=== PATIENT | female | born 1950 | race Caucasian/White ===

== ENCOUNTER 2021-06-13 08:16 | Day surgery (SDC) | payer OTHER ==
[~2021-06-13 08:16] MED LIST: SODIUM CHLORIDE 0.9% 1,000 ML IV ONE; SODIUM CHLORIDE 0.9% 1,000 ML ONE
[2021-06-13] MEDS ORDERED: SODIUM CHLORIDE 0.9% 1,000 ML IV ONE (08:30)
[2021-06-13] MEDS ORDERED: DIAZEPAM 5 MG TABLET ONE (09:46)
[2021-06-13] MEDS ORDERED: ASPIRIN 81 MG CHEWABLE TABLET ONE ×2 (09:46→12:25)
[2021-06-13] MEDS ORDERED: DiphenhydrAMINE HCL 50 MG CAPSULE ONE (09:47)
[2021-06-13] MEDS ORDERED: HEPARIN SODIUM 1000 UNITS/NS 1,000 ML ONE (10:02)
[2021-06-13] MEDS ORDERED: SODIUM BICARBONATE 50 MEQ/50 ML VIAL ONE (10:02)
[2021-06-13] MEDS ORDERED: LIDOCAINE/PF 1% 30 ML VIAL ONE (10:02)
[2021-06-13] MEDS ORDERED: IOHEXOL 300 MG/ML 150 ML VIAL ONE (10:03)
[2021-06-13 10:05] LABS: PROTHROMBIN TIME 10.3 SEC (9.4-11.6)
[2021-06-13 10:26] LABS: GLUCOMETER DEV NAME(LOC) SDS.; GLUCOSE,POINT OF CARE 246 MG/DL (70-110)
[2021-06-13] MEDS ORDERED: DiphenhydrAMINE HCL 50 MG CAPSULE PO ONE (10:30)
[2021-06-13] MEDS ORDERED: ASPIRIN 81 MG CHEWABLE TABLET PO ONE ×2 (10:30→13:00)
[2021-06-13] MEDS ORDERED: DIAZEPAM 5 MG TABLET PO ONE (10:30)
[2021-06-13 10:31] VITALS: BP 191/82
[2021-06-13] MEDS ORDERED: FentaNYL CITRATE PF 100 MCG/2 ML VIAL ONE (10:44)
[2021-06-13] MEDS ORDERED: MIDAZOLAM HCL 2 MG/2 ML VIAL ONE (10:44)
[2021-06-13] MEDS ORDERED: METOPROLOL TARTRATE 5 MG/5 ML VIAL ONE (10:54)
[2021-06-13] MEDS ORDERED: METOPROLOL TARTRATE 5 MG/5 ML VIAL IVP ONE (11:00)
[2021-06-13] MEDS ORDERED: HEPARIN SODIUM 1000 UNITS/NS 1,000 ML IARTER ONE (11:00)
[2021-06-13] MEDS ORDERED: IOHEXOL 300 MG/ML 150 ML VIAL IARTER ONE (11:00)
[2021-06-13] MEDS ORDERED: HEPARIN SODIUM,PORCINE 5,000 UNITS/ML VIAL IVP ONE ×2 (11:00→11:30)
[2021-06-13] MEDS ORDERED: MIDAZOLAM HCL 2 MG/2 ML VIAL IVP ONE (11:00)
[2021-06-13] MEDS ORDERED: LIDOCAINE 1% 30 ML/SOD BICARB 8.4% 4 ML SQ ONE (11:00)
[2021-06-13] MEDS ORDERED: FentaNYL CITRATE PF 100 MCG/2 ML VIAL IVP ONE (11:00)
[2021-06-13] MEDS ORDERED: IOHEXOL 300 MG/ML 50 ML VIAL ONE (11:23)
[2021-06-13] MEDS ORDERED: IOHEXOL 300 MG/ML 100 ML VIAL ONE (11:24)
[2021-06-13] MEDS ORDERED: CLOPIDOGREL BISULFATE 75 MG TABLET ONE (12:25)
[2021-06-13 12:40] VITALS: BP 167/83
[2021-06-13] MEDS ORDERED: CLOPIDOGREL BISULFATE 75 MG TABLET PO ONE (13:00)
== END 2021-06-13 16:50 | disposition home or self-care (01) ==
LOC: SDS 08:16
PROVIDERS: ATTEND Internal Medicine Interventional Cardiology
DX: I70.222 Atherosclerosis of native arteries of extremities with rest pain, left leg (principal); I10 Essential (primary) hypertension; E11.51 Type 2 diabetes mellitus with diabetic peripheral angiopathy without gangrene; Z79.01 Long term (current) use of anticoagulants; Z79.899 Other long term (current) drug therapy; Z98.890 Other specified postprocedural states; Z79.82 Long term (current) use of aspirin
CPT/HCPCS: 36415; 37225; 75630; 82962; 83036; 85610; 85730; 93005; 99152; 99153; C1714; C1725; C1760; C1887; J1644; J2250; J3010; J3490 ×3; J7030; Q9967 ×3; 36200; 37229; 75716; 75962; Z7610